=== PATIENT | male | born 1985 | race Caucasian/White ===

== ENCOUNTER 2024-06-30 17:56 | Emergency (ER) | payer OTHER, SELFPAY ==
--- NOTE | ~2024-06-30 | US_ITS ---
CLINICAL HISTORY: teistuclar pain US Scrotum with Doppler Comparison: None Findings: Right testicle normal echotexture, 5.6 x 2.4 x 3.5 cm. Left testicle normal echotexture, 5.4 x 2.3 x 3.7 cm. Normal color flow and arterial/venous spectral tracing of both testicles. Epididymides are unremarkable. No varicoceles. No hydroceles. IMPRESSION: Normal scrotal ultrasound. No evidence of torsion. This document has been electronically signed by: Polo Castillo MD on 06/30/2024 19:19:33
--- NOTE | ~2024-06-30 | CT_ITS ---
CLINICAL HISTORY: Right flank pain. kidney stones? CT abdomen and pelvis without contrast Comparison: None Findings: No consolidation or effusion. The spleen, adrenal glands, pancreas, gallbladder and liver are unremarkable. There is a 1 cm cyst in the liver adjacent to falciform ligament. The left kidney is normal and there is no left-sided ureteral stones. There is a right-sided ureteral stent with pigtails in the renal pelvis in the urinary bladder. There is a few nonobstructing renal calculi within the right kidney. No right-sided hydronephrosis. No bowel obstruction, pneumoperitoneum, or pneumatosis. Pelvic contents unremarkable. Normal appendix. No acute fracture. IMPRESSION: 1. Right ureteral stent in appropriate position. No hydronephrosis of either kidney. Nonobstructing right renal calculi. This document has been electronically signed by: Polo Castillo MD on 06/30/2024 20:10:33
[2024-06-30 18:03] VITALS: BP 161/94; PULSE 111; RESP 19; TEMP 36.6; O2SAT 98; BMI 36.6
--- NOTE | 2024-06-30 18:09 | ED_ITS ---
HPI - Male Genitourinary General Chief complaint: Urogenital-Male Stated complaint: UTI, Kidney Stones? Time Seen by Provider: 06/30/24 19:00 Source: patient, RN notes reviewed and old records reviewed Mode of arrival: ambulatory Limitations: no limitations History of Present Illness ED Provider: Vladimir DE LA O Narrative: 38-year-old male presents for evaluation of right flank pain that radiates to his right testicle. Patient was diagnosed with a kidney stones and admitted to [facility] last week. He was discharged on 06/28/2024. He had a right ureteral stent placed by Dr. Hussain Martinez. He was given a 2 day prescription of Augmentin to treat UTI and was discharged with Pyridium, oxycodone, tamsulosin. Patient reports that he has continued right flank pain, blood in his urine. Denies any fevers or chills His pain is an 10/13 Related Data Previous Rx's ?Medication ?Instructions ?Recorded cefuroxime axetil 500 mg tablet 500 mg PO Q12H #10 tabs 06/30/24 Allergies Allergy/AdvReac Type Severity Reaction Status Date / Time No Known Allergies Allergy Verified 06/30/24 18:05 Review of Systems 2 Constitutional: Constitutional: Denies body ache(s), Denies chills, Denies fever(s) and Denies headache(s) Eyes: Eyes: Denies blurry vision, Denies floaters and Denies irritation ENT: Denies dysphagia, Denies vertigo and Denies headache(s) Cardiovascular: Cardiovascular: Denies chest pain and Denies dyspnea Respiratory: Respiratory: Denies cough and Denies dyspnea Gastrointestinal: Gastrointestinal: Reports abdominal pain, Denies dysphagia, Reports nausea and Denies vomiting Genitourinary: Genitourinary: Reports hematuria, Reports flank pain, Denies scrotal swelling, Denies testicular mass and Reports testicular pain Musculoskeletal: Musculoskeletal: Reports back pain Neurologic: Denies vertigo and Denies headache(s) [facility] Social History Social History Advance Directives: No Advance Directives Information Provided: Yes Do you have a plan to hurt others: No Plan Physical Exam 2 Vital Signs: Vital Signs: Last Vital Signs Temp 98.2 F 06/30/24 20:44 Pulse 81 06/30/24 20:44 Resp 16 06/30/24 20:44 BP 113/71 06/30/24 20:44 Pulse Ox 97 06/30/24 20:44 O2 Del Method Room Air 06/30/24 20:44 BMI result Body Mass Index 36.6 Const: General: healthy appearing, comfortable, no acute distress, alert and awake Nutritional Appearance: well nourished Orientation/consciousness: p atient oriented x3 HEENT: Head: Yes normocephalic and Yes atraumatic Eyes: Eyelids: Yes eyelids normal Conjunctivae: conjunctivae normal S clerae: sclerae normal Corneas: corneas normal Pupils: Equal, round and reactive pupils present EOM: EOMs intact bilaterally Neck: Neck: Yes full ROM Resp: Effort & Inspection: normal respiratory effort, able to speak in complete sentences and not labored Cardio: Rate: regular rate Rhythm: regular rhythm GI: Inspection: No distended Palpation (GI): Soft to palpation, not firm, Tenderness to palpation present (GI) in the RLQ and suprapubicly, no guarding and not rigid : Other: Unremarkable, circumcised male phallus. No evident scrotal edema, overlying skin changes or testicular tenderness. Penis: normal penis Meatus: meatus normal and no meatla discharge Skin: General skin exam: elasticity normal Neuro: General: patient oriented x3 Cranial nerves: Yes Equal, round and reactive pupils present and Yes Bilaterally intact EOM present Cognition (Neuro): normal cognition Course Reevaluation(s) Reevaluation #1: The patient's CT scan shows the right ureteral stent is in appropriate position. There was no further hydronephrosis of either kidney. The patient does have a few nonobstructing right renal calculi. Given that there is no active hydronephrosis, the patient is well-appearing with stable vital signs, he was afebrile in his pain is well tolerated, I feel the patient can be safely discharged to follow up with his outpatient neurologist. His hematuria is likely from the ureteral stent as this was a recent procedure. His renal function is stable[place] [id number] we will restart the patient on a course of antibiotics to prevent significant UTI or pyelonephritis. Time: 20:22 Medications Administered Discontinued Medications Generic Name Dose Route Start Last Admin Trade Name Freq PRN Reason Stop Dose Admin Sodium Chloride 1,000 mls @ 999 mls/hr 06/30/24 19:15 06/30/24 20:44 Ns IV 04/27/25 20:15 Infused .Q1H1M BILLY Infusion Ketorolac Tromethamine 30 mg 06/30/24 19:07 06/30/24 19:46 Ketorolac Tromethamine 30 Mg/Ml Vial IVPUSH 06/30/24 19:08 30 mg ONCE ONE Administration Ondansetron HCl 4 mg 06/30/24 19:07 06/30/24 19:46 Ondansetron Hcl 4 Mg/2 Ml Vial IVPUSH 06/30/24 19:08 4 mg ONCE ONE Administration Medical Decision Making Medical Decision Making MDM Narrative: 38-year-old male presents for evaluation of right flank pain. He reports that he had a 3 mm obstructive uropathy diagnosed at [facility] last week. He has a right ureteral stent in place. The patient had a workup in triage that included labs, urinalysis, ultrasound of the scrotum to rule out torsion and a CT scan of the abdomen pelvis. The patient[place] labs [place] [address]. His carbon dioxide level is slightly low at 21 which could be due to hyperventilating due to his level of pain. Renal function within normal limits. On exam, the patient is well-appearing, he has mild right-sided abdominal tenderness. Positive CVA tenderness on right. He was somewhat tachycardic to 105 and hypotensive which could be related to his level of pain. His temperature is normal at 98.5, he has been afebrile in the department. Unremarkable scrotum exam. Less likely ovarian torsion. Differential Diagnosis Differential Diagnoses: The differential diagnosis associated with the presentation includes UTI Cystitis Obstructive uropathy Pyelonephritis Renal colic Admission/Observation Consideration of admission/observation: Escalation of care including admission/observation considered Lab Data MDM Lab Attestation statement: I reviewed the patient's lab results. As above 06/30/24 18:20 06/30/24 18:20 Labs: Lab Results 06/30/24 Range/Units 18:20 WBC 17.3 H (4.8-10.8) X10*3/uL RBC 5.57 (4.60-5.80) X10*6/uL Hgb 16.9 (14.0-18.0) g/dl Hct 46.4 (42.0-52.0) % MCV 83.3 (80.0-98.0) fL MCH 30.3 (27.0-33.0) pg MCHC 36.4 H (31.0-36.0) g/dl RDW 11.8 (11.0-16.0) % Plt Count 267 (160-400) X10*3/uL MPV 9.8 (9.4-12.4) fL Immature Gran % (Auto) 0.6 H (0.0-0.4) % Neut % (Auto) 71.1 (45-73) % Lymph % (Auto) 20.7 (20-40) % [place] % (Auto) 6.0 (2-11) % Eos % (Auto) 1.3 (0-4) % Baso % (Auto) 0.3 (0-2) % Lymph # (Auto) 3.6 (1.2-4.9) X10*3/uL [place] # (Auto) 1.0 (0.1-1.2) X10*3/uL Eos # (Auto) 0.2 (0.0-0.4) X10*3/uL Baso # (Auto) 0.1 (0.0-0.2) X10*3/uL Abs Immat Gran (auto) 0.10 H (0.00-0.03) X10*3/uL Absolute Neuts (auto) 12.3 H (2.0-8.3) x10*3/uL Absolute Nucleated RBC 0.000 (0.0-0.012) X10*3/uL Nucleated RBC % (auto) 0.0 (0.0-0.2) /100WBC Sodium 139 (135-145) mmol/L Potassium 4.2 (3.3-5.1) mmol/L Chloride 107 (96-108) mmol/L Carbon Dioxide 21 L (22-29) mmol/L Anion Gap 15 (12-20) BUN 12 (9-16) mg/dL Creatinine 0.88 (0.5-1.4) mg/dL Estim Creat Clear Calc 156.8 Estimated GFR > 60 Random Glucose 117 H (60-115) mg/dL Calcium 9.5 (8.4-10.2) mg/dL Total Bilirubin 0.5 (0.0-1.0) mg/dL AST 25 (5-37) U/L ALT 53 H (0-40) U/L Alkaline Phosphatase 73 (39-117) U/L Total Protein 7.7 (6.5-8.0) g/dL Albumin 4.5 (3.5-5.0) g/dL Urine Color BROWN Urine Appearance Turbid Urine pH 6.5 (5.0-9.0) Ur Specific [place] >= 1.030 H (1.005-1.025) Urine Protein 300 (3+) H (Neg-Trace) mg/dL Urine Glucose (UA) 100 H (Negative) mg/dL Urine Ketones Trace (Negative) mg/dL Urine Blood Large (3+) H (Negative) Urine Nitrite Positive H (Negative) Ur Leukocyte Esterase Small (1+) H (Negative) Urine RBC >20 H (0-2) /HPF Urine WBC >50 H (0-5) /HPF Ur Squamous Epith Cells 0-2 (0-2) /HPF Urine Bacteria None Seen (None Seen) Hyaline Casts 0-2 (0-2) /LPF Radiology Impression Discussion of test interpretation with radiology: I have reviewed the radiologist's reading. Radiologist Impression: Findings: Right testicle normal echotexture, 5.6 x 2.4 x 3.5 cm. Left testicle normal echotexture, 5.4 x 2.3 x 3.7 cm. Normal color flow and arterial/venous spectral tracing of both testicles. Epididymides are unremarkable. No varicoceles. No hydroceles. IMPRESSION: Normal scrotal ultrasound. No evidence of torsion. This document has been electronically signed by: Polo Castillo MD on 06/30/2024 19:19:33 Findings: No consolidation or effusion. The spleen, adrenal glands, pancreas, gallbladder and liver are unremarkable. There is a 1 cm cyst in the liver adjacent to falciform ligament. The left kidney is normal and there is no left-sided ureteral stones. There is a right-sided ureteral stent with pigtails in the renal pelvis in the urinary bladder. There is a few nonobstructing renal calculi within the right kidney. No right-sided hydronephrosis. No bowel obstruction, pneumoperitoneum, or pneumatosis. Pelvic contents unremarkable. Normal appendix. No acute fracture. IMPRESSION: 1. Right ureteral stent in appropriate position. No hydronephrosis of either kidney. Nonobstructing right renal calculi. This document has been electronically signed by: Polo Castillo MD on 06/30/2024 20:10:33 Prescription Management I considered prescription management with: Pain Medication and Antibiotic Discharge Plan Discharge Clinical Impression: Renal colic on right side Patient Disposition: Home, Self-Care Instructions: Renal Colic (ED) Additional Instructions: Your workup in the ER today was reassuring. There was a significant amount of blood in the urine but the CT scan shows your ureteral stent is in the appropriate position There is no hydronephrosis or fluid back up into the kidney. You may continue the Pyridium, Flomax and oxycodone for pain. I recommend that you take cefuroxime twice daily for the next 5 days to prevent UTI I recommend that you follow-up with your urologist who placed a stent in. For subsequent issues, you may follow up with Dr. Toussaint at the number provided Prescriptions: New cefuroxime axetil 500 mg tablet 500 mg PO Q12H Qty: 10 0RF Referrals: Venkatesh Toussaint MD [Physician] - (obstructive uropathy) Interventions: ED Discharge Assessment Last Done: 06/30/24 20:44 Discharge Date/Time: 06/30/24 20:52 Print Language: Barb[place]
[2024-06-30 18:25] LABS: MANUAL DIFF FLAG NO
[2024-06-30 18:26] LABS: Basophils Absolute Auto 0.1 X10*3/uL (0.0-0.2); Basophils Percent Auto 0.3 % (0-2); Eosinophils Absolute Auto 0.2 X10*3/uL (0.0-0.4); Eosinophils Percent Auto 1.3 % (0-4); Hematocrit 46.4 % (42.0-52.0); Hemoglobin 16.9 g/dl (14.0-18.0); Imm Gran Pct Auto 0.6 % (0.0-0.4); Lymphocytes Absolute Auto 3.6 X10*3/uL (1.2-4.9); Lymphocytes Percent Auto 20.7 % (20-40); Mean Corpuscular HGB Conc 36.4 g/dl (31.0-36.0); Mean Corpuscular Hemoglobin 30.3 pg (27.0-33.0); Mean Corpuscular Volume 83.3 fL (80.0-98.0); Mean Platelet Volume 9.8 fL (9.4-12.4); Neutrophils Absolute Auto 12.3 x10*3/uL (2.0-8.3); Neutrophils Percent Auto 71.1 % (45-73); Platelet Count 267 X10*3/uL (160-400); Red Blood Count 5.57 X10*6/uL (4.60-5.80); Red Cell Distribution Width 11.8 % (11.0-16.0); White Blood Count 17.3 X10*3/uL (4.8-10.8)
[2024-06-30 18:27] LABS: Appearance Urine Turbid; Color Urine BROWN; Glucose Urine UA 100 mg/dL (Negative); Leukocyte Esterase Urine Small (1+) (Negative); Nitrite Urine Positive (Negative); PH 6.5 (5.0-9.0); Specific Gravity - Urine >= 1.030 (1.005-1.025); UMIC TRIGGER UACC YES; Urine Blood Large (3+) (Negative); Urine Ketones Trace mg/dL (Negative); Urine Protein 300 (3+) mg/dL (Neg-Trace)
[2024-06-30 18:39] VITALS: BP 147/97; PULSE 105; RESP 15; TEMP 36.9; O2SAT 96
[2024-06-30 18:40] LABS: Albumin Level 4.5 g/dL (3.5-5.0); Alkaline Phosphatase 73 U/L (39-117); Anion Gap 15 (12-20); Aspartate Amino Transferase 25 U/L (5-37); Bacteria Urine None Seen (None Seen); Bilirubin Total 0.5 mg/dL (0.0-1.0); Blood Urea Nitrogen 12 mg/dL (9-16); Calcium 9.5 mg/dL (8.4-10.2); Carbon Dioxide 21 mmol/L (22-29); Chloride 107 mmol/L (96-108); Creatinine Clr Calc Pharmacy 156.8; Estimated Glomerular Filt Rate > 60; Glucose Random 117 mg/dL (60-115); Hyaline Casts Urine 0-2 /LPF (0-2); Potassium 4.2 mmol/L (3.3-5.1); RBC Urine >20 /HPF (0-2); Sodium 139 mmol/L (135-145); Squamous Epithelial Cell Urine 0-2 /HPF (0-2); Total Protein 7.7 g/dL (6.5-8.0); UACC Culture Trigger YES; WBC Urine >50 /HPF (0-5)
[2024-06-30 18:52] LABS: Alanine Aminotransferase 53 U/L (0-40)
[2024-06-30] MEDS: ondansetron HCL 4 MG/2 ML VIAL IVPUSH (19:46)
[2024-06-30] MEDS: Ketorolac Tromethamine 30 MG/ML VIAL IVPUSH (19:46)
[2024-06-30] MEDS: 0.9 % Sodium Chloride 1,000 ML 999 ML IV (19:47)
[2024-06-30 20:44] VITALS: BP 113/71; PULSE 81; RESP 16; TEMP 36.8; O2SAT 97
== END 2024-06-30 20:52 | disposition home or self-care (01) ==
PROVIDERS: Physician Assistant; Emergency Provider Emergency Medicine
DX: N23 Unspecified renal colic (principal); Z87.442 Personal history of urinary calculi; Z96.0 Presence of urogenital implants; N50.819 Testicular pain, unspecified
CPT/HCPCS: 36415; 74176; 76870; 80053; 81001; 85025; 87086; 93975; 96361; 96374; 96375; 99284; J1885; J2405

== ENCOUNTER → 2024-06-30 18:10 | Outpatient (BNV) | payer OTHER, SELFPAY | PROVIDERS: Emergency Provider Emergency Medicine; Visit Provider Radiology Diagnostic Radiology | DX: N50.819 Testicular pain, unspecified (principal) | CPT/HCPCS: 74176; 76870; 93975 ==